=== PATIENT | male | born 2000 | race Caucasian/White ===

== ENCOUNTER 2024-06-09 05:34 | Inpatient (IN) | payer BC ==
[2024-06-08 15:58] LABS: BASOPHILS # (AUTO) 0.1 X10'3 (0-0.2); BASOPHILS % (AUTO) 0.5 % (0-1); EOSINOPHILS # (AUTO) 0.5 X10'3 (0-0.9); EOSINOPHILS % (AUTO) 3.6 % (0-6); LYMPHOCYTES % (AUTO) 7.3 % (21-51); MEAN CORPUSCULAR VOLUME 78.9 FL (78-98); MEAN PLATELET VOLUME 6.8 FL (7.4-10.4); MONOCYTES # (AUTO) 0.8 X10'3 (0-0.9); MONOCYTES % (AUTO) 5.9 % (2-12); NEUTROPHILS # (AUTO) 11.5 X10'3 (1.8-7.7); NEUTROPHILS % (AUTO) 82.7 % (42-75); PRE OP HEMATOCRIT 41.5 % (42.0-52.0); PRE OP HEMOGLOBIN 13.7 g/dL (14.0-17.9); PRE OP PLATELET COUNT 474 X10'3 (140-440); PRE OP WHITE BLOOD COUNT 13.9 10'3 (4.8-10.8); RED BLOOD COUNT 5.26 X10'6 (4.70-6.10); RED CELL DISTRIBUTION WIDTH 14.7 % (11.5-14.5)
[2024-06-08 16:14] LABS: PRE OP INR 1.1 INR; PRE OP PROTIME 11.7 SECONDS (9.0-12.0)
[2024-06-08 16:15] LABS: ALBUMIN 3.6 G/DL (3.4-5.0); ALBUMIN/GLOBULIN RATIO 0.7 (1.1-1.5); ALKALINE PHOSPHATASE 121 IU/L (46-116); BLOOD UREA NITROGEN 14 MG/DL (7-18); BUN/CREATININE RATIO 13.7 (10.0-20.0); CALCIUM 8.8 MG/DL (8.5-10.1); CHLORIDE 101 MMOL/L (99-107); CREATININE 1.02 MG/DL (0.60-1.10); PRE OP ALT 15 U/L (30-65); PRE OP ANION GAP 9 (8-16); PRE OP AST 14 U/L (10-37); PRE OP BILIRUB, TOTAL 0.4 MG/DL (0.0-1.0); PRE OP GLUCOSE 94 MG/DL (70-104); PRE OP POTASSIUM 3.5 MMOL/L (3.4-5.1); PRE OP SODIUM 139 MMOL/L (135-145); TOTAL CARBON DIOXIDE 29.2 MMOL/L (24-32); eGFR > 90 ML/MIN
[2024-06-09] VITALS (25 sets, daily range): BP systolic 99–125; BP diastolic 56–72; PULSE 71–95; RESP 12–25; TEMP 97.4–98.6; O2SAT 94–100
[~2024-06-09] VITALS: Ht 180.3 cm; Wt 74.4 kg
[~2024-06-09 05:34] MED LIST: ASCO-134 PO; DUTA0.5C36 PO; MAGN200T5 PO; MULT-1085 PO; ZINC30TA2 PO
[2024-06-09] MEDS: famotidine 20mg tablet PO ONE (06:41)
[2024-06-09] MEDS ORDERED: INDOCYANINE GREEN 25 MG/10 ML VIAL IV ONE (06:41)
[2024-06-09] MEDS: ringers solution, lacted 1,000 ML IV SCH ×2 (06:41→07:30)
[2024-06-09] MEDS: ceFAZolin 2gm in dextrose, iso 50 ML IV ONE (06:41)
[2024-06-09] MEDS ORDERED: BUPIVAcaine 2.5mg/ml inj 50ml vial (contains preservative) ONE (06:41)
[2024-06-09] MEDS ORDERED: BUPIVACAINE liposomal/PF 13.3 MG/ML vial IM ONE (06:41)
[2024-06-09] MEDS ORDERED: LIDOcaine 2% (20mg/ml) 5ml vial ONE ×2 (07:05→07:20)
[2024-06-09] MEDS ORDERED: MIDAZolam 1 MG/ML 5ML VIAL ONE (07:19)
[2024-06-09] MEDS ORDERED: fentaNYL /PF 50mcg/ml 5ml ampule ONE (07:19)
[2024-06-09] MEDS ORDERED: ondansetron/PF 4mg/2ml inj ONE (07:20)
[2024-06-09] MEDS ORDERED: acetaminophen 1,000mg/100ml IV 100 ML IV ONE (07:20)
[2024-06-09] MEDS ORDERED: dexamethasone sod phosphate 4mg/ml inj. ONE (07:20)
[2024-06-09] MEDS ORDERED: rocuronium 10mg/ml inj IV ONE ×2 (07:20)
[2024-06-09] MEDS ORDERED: propofol inj 20 ML IV ONE (07:20)
[2024-06-09] MEDS ORDERED: dexmedetomidine 200mcg/2ml inj. IV ONE (07:26)
[2024-06-09 07:27] LABS: BILIRUBIN,URINE NEGATIVE (Neg); COLOR,URINE YELLOW (Yellow); GLUCOSE, URINE NEGATIVE (Neg); KETONES,URINE TRACE mg/dl (Neg); LEUKOCYTE ESTERASE ,URINE NEGATIVE (Neg); NITRITES, URINE NEGATIVE (Neg); OCCULT BLOOD,URINE NEGATIVE (Neg); PH,URINE 5.5 (4.8-8.0); PROTEIN,URINE NEGATIVE (Neg)
[2024-06-09] MEDS ORDERED: hydrALAZINE 20mg/ml inj. IV PRN (07:30)
[2024-06-09] MEDS ORDERED: ondansetron/PF 4mg/2ml inj IV PRN (07:30)
[2024-06-09] MEDS ORDERED: fentaNYL/PF 50MCG/1 ML 2ML syringe IV PRN ×2 (07:30)
[2024-06-09] MEDS ORDERED: labetalol 20mg/4ml (5mg/ml) syringe IV PRN (07:30)
[2024-06-09] MEDS ORDERED: sevoflurane 250ml liquid IH ONE (07:39)
[2024-06-09 07:56] LABS: CLARITY,URINE SLIGHTLY CLOUDY (Clear); UA COLLECTION TYPE CLN CATCH MIDSTREAM
[2024-06-09 07:57] LABS: BACTERIA,URINE NONE SEEN /HPF (Neg); CAL OXALATE CRYSTALS FEW /HPF (NEGATIVE); MUCUS STRANDS FEW /LPF (Neg); RBC,URINE 0-2 /HPF (0-2); SQUAMOUS EPITHELIAL CELL,UR FEW /LPF (FEW); WBC,URINE 0-4 /HPF (0-4)
[2024-06-09] MEDS: BUPIVAcaine 2.5mg/ml inj 50ml vial (contains preservative) SQ ONE (08:34)
[2024-06-09] MEDS ORDERED: albumin (Human) 5% 250ml 250 ML IV ONE (09:04)
[2024-06-09] MEDS ORDERED: sugammadex 200mg/2ml injection IV ONE (09:05)
[2024-06-09] MEDS ORDERED: HYDROcodone/acetaminophen 10/325mg tab PO PRN (09:55)
[2024-06-09] MEDS ORDERED: metoclopramide 5 mg/ml inj IV PRN (09:55)
[2024-06-09] MEDS ORDERED: albuterol 2.5 MG/3 ML nebule NEB PRN (09:55)
[2024-06-09] MEDS ORDERED: morphine 4 MG/ML inj SYRINge IV PRN (09:55)
[2024-06-09] MEDS: potassium Cl 20mEq in D5-NS 1,000 ML IV SCH (09:55)
[2024-06-09] MEDS: ketorolac trometh 30MG/ML vial 30 MG/ML VIAL IV PRN (10:15)
[2024-06-09 10:17] LABS: ABG BASE EXCESS -0.2 mmol/L (-2.0-3.0); ABG HCO3 25.7 mmol/L (21.0-28.0); ABG OXYGEN SATURATION 99.6 % (94.0-98.0); ABG PCO2 (T) 45.5 mmHg (35.0-48.0); ABG PH (T) 7.367 (7.350-7.450); ABG PO2 (T) 180.4 mmHg (83.0-108.0); FCOHb 0.2 % (0.5-1.5); FHHb 0.4 % (0.0-5.0); FLOW 5 L/min; FO2Hb 99.4 % (94.0-98.0); MODE NASAL CANNULA; PATIENT TEMPERATURE 36.3; TOTAL HEMOGLOBIN 12.6 G/dl (13.5-17.5)
[2024-06-09] MEDS: morphine 4 MG/ML inj SYRINge IV PRN (10:34)
[2024-06-09] MEDS: morphine 2 MG/ML inj. syringe IV PRN ×2 (11:00→23:22)
[2024-06-09] MEDS: HYDROcodone/acetaminophen 10/325mg tab PO PRN (11:01)
[2024-06-09] MEDS: ceFAZolin inj. 1,000 MG in dextrose 5%-water 50ml 50 ML IV SCH (16:00)
[2024-06-09] MEDS: gabapentin 300mg capsule PO SCH (19:49)
[2024-06-10] VITALS (9 sets, daily range): BP systolic 105–122; BP diastolic 55–72; PULSE 67–119; RESP 16–26; TEMP 97.2–97.9; O2SAT 96–98
[2024-06-10 05:44] LABS: BASOPHILS % (AUTO) 0.2 % (0-1); EOSINOPHILS % (AUTO) 0.3 % (0-6); HEMOGLOBIN 11.3 g/dl (14.0-17.9); LYMPHOCYTES # (AUTO) 0.9 X10'3 (1.1-4.8); LYMPHOCYTES % (AUTO) 7.7 % (21-51); MEAN CORPUSCULAR HEMOGLOBIN 26.1 PG (27.0-31.0); MEAN CORPUSCULAR HGB CONC 33.3 g/dL (33.0-36.5); MEAN CORPUSCULAR VOLUME 78.6 FL (78-98); MEAN PLATELET VOLUME 6.9 FL (7.4-10.4); MONOCYTES # (AUTO) 1.1 X10'3 (0-0.9); MONOCYTES % (AUTO) 9.2 % (2-12); NEUTROPHILS # (AUTO) 9.7 X10'3 (1.8-7.7); NEUTROPHILS % (AUTO) 82.6 % (42-75); PLATELET COUNT 408 X10'3 (140-440); RED BLOOD COUNT 4.32 X10'6 (4.70-6.10); RED CELL DISTRIBUTION WIDTH 14.8 % (11.5-14.5); WHITE BLOOD COUNT 11.8 X10'3 (4.5-11.0)
[2024-06-10 06:09] LABS: ALANINE AMINOTRANSFERASE 20 U/L (12-78); ALBUMIN 2.9 G/DL (3.4-5.0); ALBUMIN/GLOBULIN RATIO 0.7 (1.1-1.5); ALKALINE PHOSPHATASE 93 IU/L (46-116); ANION GAP 10 (8-16); ASPARTATE AMINO TRANSFERASE 19 U/L (10-37); BILIRUBIN,TOTAL 0.4 MG/DL (0.1-1.0); BLOOD UREA NITROGEN 9 MG/DL (7-18); BUN/CREATININE RATIO 10.7 (10.0-20.0); CALCIUM 8.7 MG/DL (8.5-10.1); CHLORIDE 108 MMOL/L (99-107); CREATININE 0.84 MG/DL (0.60-1.10); GLUCOSE 116 MG/DL (70-104); POTASSIUM 3.9 MMOL/L (3.5-5.1); SODIUM 143 MMOL/L (135-145); TOTAL CARBON DIOXIDE 25.5 MMOL/L (24-32); eCRCL 145 ML/MIN; eGFR > 90 ML/MIN
[2024-06-10] MEDS: ascorbic acid 500mg tablet PO SCH (07:13)
[2024-06-10] MEDS: dutasteride 0.5 MG capsule PO SCH (07:13)
[2024-06-10] MEDS: magnesium oxide 400mg tablet PO SCH (07:13)
[2024-06-10] MEDS: multivitamins, therapeutics tablet PO SCH (07:15)
[2024-06-10] MEDS ORDERED: ZINC GLUCONATE 30 MG PO SCH (08:00)
[2024-06-11 02:43] VITALS: BP 120/75; PULSE 120; RESP 25; TEMP 98.2; O2SAT 98
[2024-06-11] MEDS: ondansetron/PF 4mg/2ml inj IV PRN (02:58)
[2024-06-11 05:59] LABS: BASOPHILS % (AUTO) 0.2 % (0-1); EOSINOPHILS # (AUTO) 0.1 X10'3 (0-0.9); EOSINOPHILS % (AUTO) 0.5 % (0-6); HEMATOCRIT 38.1 % (42.0-52.0); HEMOGLOBIN 12.4 g/dl (14.0-17.9); LYMPHOCYTES # (AUTO) 0.7 X10'3 (1.1-4.8); LYMPHOCYTES % (AUTO) 4.6 % (21-51); MEAN CORPUSCULAR HEMOGLOBIN 25.5 PG (27.0-31.0); MEAN CORPUSCULAR HGB CONC 32.5 g/dL (33.0-36.5); MEAN CORPUSCULAR VOLUME 78.7 FL (78-98); MONOCYTES # (AUTO) 1.2 X10'3 (0-0.9); MONOCYTES % (AUTO) 7.6 % (2-12); NEUTROPHILS # (AUTO) 13.3 X10'3 (1.8-7.7); NEUTROPHILS % (AUTO) 87.1 % (42-75); PLATELET COUNT 411 X10'3 (140-440); RED BLOOD COUNT 4.84 X10'6 (4.70-6.10); WHITE BLOOD COUNT 15.3 X10'3 (4.5-11.0)
[2024-06-11 06:00] VITALS: O2SAT 96
[2024-06-11 06:21] LABS: ALANINE AMINOTRANSFERASE 19 U/L (12-78); ALBUMIN 3.1 G/DL (3.4-5.0); ALBUMIN/GLOBULIN RATIO 0.7 (1.1-1.5); ALKALINE PHOSPHATASE 96 IU/L (46-116); ANION GAP 10 (8-16); ASPARTATE AMINO TRANSFERASE 14 U/L (10-37); BILIRUBIN,TOTAL 0.5 MG/DL (0.1-1.0); BLOOD UREA NITROGEN 9 MG/DL (7-18); BUN/CREATININE RATIO 10.5 (10.0-20.0); CHLORIDE 103 MMOL/L (99-107); CREATININE 0.86 MG/DL (0.60-1.10); GLUCOSE 109 MG/DL (70-104); POTASSIUM 3.7 MMOL/L (3.5-5.1); SODIUM 141 MMOL/L (135-145); TOTAL CARBON DIOXIDE 28.5 MMOL/L (24-32); TOTAL PROTEIN 7.5 G/DL (6.4-8.2); eCRCL 142 ML/MIN; eGFR > 90 ML/MIN
[2024-06-11 07:46] VITALS: BP 109/58; PULSE 87; RESP 15; TEMP 97; O2SAT 96
[2024-06-11 08:00] VITALS: RESP 15; O2SAT 96
[2024-06-11 09:33] VITALS: PULSE 116; RESP 16; O2SAT 96
[2024-06-11 11:25] VITALS: BP 108/54; PULSE 85; RESP 14; TEMP 97.4; O2SAT 96
== END 2024-06-11 15:10 | disposition home or self-care (01) | DRG 165 ==
LOC: PAS IN 05:34 → PCU 3S 12:21
PROVIDERS: ADMIT Surgery; ATTEND Surgery
PROC: 8E0W4CZ Robotic Assisted Procedure of Trunk Region, Percutaneous Endoscopic Approach (ICD-10-PCS; 2024-06-09)
PROC: 07B74ZZ Excision of Thorax Lymphatic, Percutaneous Endoscopic Approach (ICD-10-PCS; 2024-06-09)
PROC: 0BBF4ZZ Excision of Right Lower Lung Lobe, Percutaneous Endoscopic Approach (ICD-10-PCS; principal; 2024-06-09 07:39)
DX: R91.8 Other nonspecific abnormal finding of lung field (principal); R59.1 Generalized enlarged lymph nodes
CPT/HCPCS: 36415; 36600; 71045; 71046; 80053; 81001; 82803; 82948; 85018; 85025; 85610; 85730; 86885; 86900; 86901; 87081; 93005; 94760; 97116; 97161; 97530; A4618; A6258; A6449; A7000; A7048; C9250; C9290; G0378; J0131; J0690; J1100; J1885; J2003; J2250; J2270; J2405; J2704; J3010; J3480; J3490; J7040; J7060; J7120; P9045